=== PATIENT | male | born 1940 | race Caucasian/White ===

== ENCOUNTER 2018-04-04 17:46 | Inpatient (IN) | payer MEDICARE ==
[~2018-04-04] VITALS: Ht 165.1 cm; Wt 94.2 kg
[~2018-04-04 17:46] MED LIST: ACET-1600 PO; ALLO300T PO; ASPI-515 PO; HYDR-3240 PO; LISI40TA PO; MULT-516 PO; NAPR220C2 PO; OMEP20TA62 PO; PANT40TA5 PO; TERA1CAP3 PO; VITAMIN B12 PO
[2018-04-04] MEDS ORDERED: SODIUM CHLORIDE FLUSH 10ML SYR IVF ONE (18:30)
[2018-04-04 18:43] LABS: BASOPHILS # (AUTO) 0.05 x10^3/uL (0-0.1); BASOPHILS % (AUTO) 1 % (0-1); EOSINOPHILS # (AUTO) 0.04 x10^3/uL (0-0.4); EOSINOPHILS % (AUTO) 0 % (1-7); LYMPHOCYTES # (AUTO) 0.23 x10^3/uL (1-3.4); LYMPHOCYTES % (AUTO) 3 % (22-44); MD NO; MEAN CORPUSCULAR HEMOGLOBIN 31.5 pg (27.5-34.5); MEAN CORPUSCULAR HGB CONC 32.4 g/dL (33.2-36.2); MEAN CORPUSCULAR VOLUME 97.1 fL (81-97); MEAN PLATELET VOLUME 7.4 fL (7.4-10.4); MONOCYTES # (AUTO) 0.19 x10^3/uL (0.2-0.8); MONOCYTES % (AUTO) 2 % (2-9); NEUTROPHILS % (AUTO) 94 % (42-75); PLATELET COUNT 456 x10^3/uL (130-400); RED BLOOD COUNT 3.59 x10^6/uL (4.38-5.82); RED CELL DISTRIBUTION WIDTH 16.8 % (9.4-14.8)
[2018-04-04 18:46] LABS: ALANINE AMINOTRANSFERASE 31 U/L (12-78); ALBUMIN 2.3 g/dL (3.4-5.0); ANION GAP 9 mmol/L (5-15); CALCIUM 8.9 mg/dL (8.5-10.1); CHLORIDE 107 mmol/L (98-107); CREATININE 1.94 mg/dL (0.7-1.3)
[2018-04-04 18:47] LABS: INTERNATIONAL NORMALIZED RATIO 1.29 (0.93-1.1); PROTHROMBIN TIME 13.2 Seconds (9.6-11.5)
[2018-04-04] MEDS ORDERED: POTA20TA89 PO (18:47)
[2018-04-04] MEDS ORDERED: FURO20TA3 PO (18:47)
[2018-04-04] MEDS ORDERED: CLOP75TA52 PO (18:47)
[2018-04-04 18:50] LABS: ALKALINE PHOSPHATASE 143 U/L (45-117); BILIRUBIN,TOTAL 1.4 mg/dL (0.2-1.0); TOTAL PROTEIN 7.3 g/dL (6.4-8.2)
[2018-04-04 18:57] LABS: MICROSCOPIC INDICATED
[2018-04-04 19:09] LABS: CULTURE INDICATED? NO
[2018-04-04] MEDS ORDERED: SODIUM CHLORIDE 0.9% 1,000 ML IV SCH (19:16)
[2018-04-04] MEDS ORDERED: HYDROcodone/APAP 5/325 TABLET PO PRN (19:30)
[2018-04-04] MEDS ORDERED: GUAIFENESIN/DM 200-20MG, 10ML UDC PO PRN (19:30)
[2018-04-04] MEDS ORDERED: POLYETHYLENE GLYCOL 17 GM PACKET PO PRN (19:30)
[2018-04-04] MEDS ORDERED: hydrALAzine 20 MG/ML, 1ML IVPush PRN (19:30)
[2018-04-04] MEDS ORDERED: ONDANSETRON 2MG/ML, 2ML IVPush PRN (19:30)
[2018-04-04 20:30] VITALS: BP 125/72
[2018-04-04] MEDS: PLEASE ENTER HEIGHT AND WEIGHT MC SCH (20:30)
[2018-04-04] MEDS: HEPARIN 5,000 UNITS/ML, 1ML SQ SCH (21:00)
[2018-04-05 01:04] VITALS: BP 129/78
[2018-04-05] MEDS: PLEASE ENTER HEIGHT AND WEIGHT MC SCH ×3 (04:30→17:00)
[2018-04-05 06:10] LABS: BASOPHILS # (AUTO) 0.04 x10^3/uL (0-0.1); BASOPHILS % (AUTO) 1 % (0-1); EOSINOPHILS # (AUTO) 0.04 x10^3/uL (0-0.4); EOSINOPHILS % (AUTO) 1 % (1-7); LYMPHOCYTES # (AUTO) 0.25 x10^3/uL (1-3.4); LYMPHOCYTES % (AUTO) 4 % (22-44); MD NO; MEAN CORPUSCULAR HEMOGLOBIN 31.6 pg (27.5-34.5); MEAN CORPUSCULAR HGB CONC 32.9 g/dL (33.2-36.2); MEAN PLATELET VOLUME 7.8 fL (7.4-10.4); MONOCYTES % (AUTO) 6 % (2-9); NEUTROPHILS # (AUTO) 6.03 x10^3/uL (1.8-6.8); NEUTROPHILS % (AUTO) 89 % (42-75); PLATELET COUNT 415 x10^3/uL (130-400); RED BLOOD COUNT 3.44 x10^6/uL (4.38-5.82); RED CELL DISTRIBUTION WIDTH 17.3 % (9.4-14.8)
[2018-04-05 06:20] LABS: ALANINE AMINOTRANSFERASE 27 U/L (12-78); ALBUMIN 2.1 g/dL (3.4-5.0); ANION GAP 10 mmol/L (5-15); CALCIUM 8.7 mg/dL (8.5-10.1); CHLORIDE 109 mmol/L (98-107); CREATININE 1.85 mg/dL (0.7-1.3)
[2018-04-05] MEDS ORDERED: ALBUMIN HUMAN 25% 100 ML IV ONE (06:30)
[2018-04-05] MEDS ORDERED: FUROSEMIDE 40 MG/4 ML IV ONE (06:30)
[2018-04-05 06:31] LABS: ALKALINE PHOSPHATASE 141 U/L (45-117); BILIRUBIN,TOTAL 1.6 mg/dL (0.2-1.0); THYROID STIMULATING HORMONE 0.606 mIU/L (0.358-3.740); TOTAL PROTEIN 6.8 g/dL (6.4-8.2)
[2018-04-05 07:59] VITALS: BP 121/65
[2018-04-05] MEDS ORDERED: LIDOCAINE 2%, 20ML ONE (08:01)
[2018-04-05] MEDS: PANTOPROZOLE 40MG TABLET PO SCH (10:57)
[2018-04-05] MEDS: MULTIVITAMIN 1 TABLET PO SCH (10:57)
[2018-04-05] MEDS: CYANOCOBALAMIN 1,000 MCG TABLET PO SCH (10:58)
[2018-04-05] MEDS: ACETAMINOPHEN 325 MG TABLET PO PRN ×2 (11:08→19:39)
[2018-04-05] MEDS: HEPARIN 5,000 UNITS/ML, 1ML SQ SCH ×2 (12:09→21:02)
[2018-04-05 13:15] VITALS: BP 101/62
[2018-04-05 19:59] VITALS: BP 108/66
[2018-04-06 01:40] VITALS: BP 101/62
[2018-04-06 04:53] LABS: ALANINE AMINOTRANSFERASE 26 U/L (12-78); ALBUMIN 2.3 g/dL (3.4-5.0); ANION GAP 8 mmol/L (5-15); CALCIUM 8.9 mg/dL (8.5-10.1); CHLORIDE 110 mmol/L (98-107)
[2018-04-06 04:57] LABS: ALKALINE PHOSPHATASE 145 U/L (45-117); BILIRUBIN,TOTAL 1.4 mg/dL (0.2-1.0); TOTAL PROTEIN 6.7 g/dL (6.4-8.2)
[2018-04-06 06:45] VITALS: BP 117/66
[2018-04-06] MEDS: IRON SUCROSE COMPLEX 100MG/5ML IV SCH (08:42)
[2018-04-06] MEDS: PANTOPROZOLE 40MG TABLET PO SCH (08:43)
[2018-04-06] MEDS: CYANOCOBALAMIN 1,000 MCG TABLET PO SCH (08:43)
[2018-04-06] MEDS: HEPARIN 5,000 UNITS/ML, 1ML SQ SCH ×2 (08:43→21:41)
[2018-04-06] MEDS: MULTIVITAMIN 1 TABLET PO SCH (08:43)
[2018-04-06] MEDS: ACETAMINOPHEN 325 MG TABLET PO PRN ×2 (10:15→18:24)
[2018-04-06 14:00] VITALS: BP 149/74
[2018-04-06 18:19] VITALS: BP 139/77
[2018-04-06 19:17] VITALS: BP 144/82
[2018-04-06 19:24] LABS: MEAN CORPUSCULAR HEMOGLOBIN 31.3 pg (27.5-34.5); MEAN CORPUSCULAR HGB CONC 32.4 g/dL (33.2-36.2); MEAN CORPUSCULAR VOLUME 96.8 fL (81-97); MEAN PLATELET VOLUME 7.4 fL (7.4-10.4); PLATELET COUNT 548 x10^3/uL (130-400); RED CELL DISTRIBUTION WIDTH 17.5 % (9.4-14.8)
[2018-04-06 19:25] LABS: TROPONIN I < 0.015 ng/mL (0.000-0.045)
[2018-04-06 19:41] LABS: BASOPHILS # (AUTO) 0.06 x10^3/uL (0-0.1); BASOPHILS % (AUTO) 1 % (0-1); EOSINOPHILS # (AUTO) 0.04 x10^3/uL (0-0.4); EOSINOPHILS % (AUTO) 1 % (1-7); LYMPHOCYTES # (AUTO) 0.28 x10^3/uL (1-3.4); LYMPHOCYTES % (AUTO) 3 % (22-44); MD MORPH REVIEW ONLY; MONOCYTES % (AUTO) 5 % (2-9); NEUTROPHILS # (AUTO) 7.54 x10^3/uL (1.8-6.8); NEUTROPHILS % (AUTO) 91 % (42-75)
[2018-04-06 19:42] LABS: ANISOCYTOSIS 1+; POLYCHROMASIA 1+
[2018-04-06 19:43] LABS: <PLATELET ESTIMATE> INCREASED; <PLT MORPHOLOGY> NORMAL PLT MORPH; TOXIC GRAN 1+
[2018-04-07 01:10] VITALS: BP 135/78
[2018-04-07 05:02] LABS: TROPONIN I < 0.015 ng/mL (0.000-0.045)
[2018-04-07 06:45] VITALS: BP 110/63
[2018-04-07] MEDS: PANTOPROZOLE 40MG TABLET PO SCH (08:04)
[2018-04-07] MEDS: IRON SUCROSE COMPLEX 100MG/5ML IV SCH (08:04)
[2018-04-07] MEDS: CYANOCOBALAMIN 1,000 MCG TABLET PO SCH (08:04)
[2018-04-07] MEDS: HEPARIN 5,000 UNITS/ML, 1ML SQ SCH (08:04)
[2018-04-07] MEDS: MULTIVITAMIN 1 TABLET PO SCH (08:04)
[2018-04-07] MEDS ORDERED: SODIUM CHLORIDE 0.9% 1,000 ML IV SCH (09:00)
[2018-04-07] MEDS ORDERED: ALBUMIN HUMAN 25% 50 ML IV SCH (09:00)
[2018-04-07 12:45] VITALS: BP 123/75
[2018-04-07] MEDS ORDERED: RIVA1TAB PO (16:50)
== END 2018-04-07 17:30 | disposition home or self-care (01) | DRG 180 ==
LOC: ED 18:36 → EDIP 18:37 → ED 18:39 → SUATTDRO 18:53 → 3NW 20:20
PROVIDERS: ADMIT Hospitalist; ATTEND Hospitalist
PROC: 0W993ZZ Drainage of Right Pleural Cavity, Percutaneous Approach (ICD-10-PCS; principal; 2018-04-05)
DX: C78.00 Secondary malignant neoplasm of unspecified lung (principal); E43 Unspecified severe protein-calorie malnutrition; J90 Pleural effusion, not elsewhere classified; N17.9 Acute kidney failure, unspecified; E86.9 Volume depletion, unspecified; D50.9 Iron deficiency anemia, unspecified; D63.8 Anemia in other chronic diseases classified elsewhere; I10 Essential (primary) hypertension; K21.9 Gastro-esophageal reflux disease without esophagitis; N40.0 Benign prostatic hyperplasia without lower urinary tract symptoms; G89.29 Other chronic pain; M10.9 Gout, unspecified; M19.90 Unspecified osteoarthritis, unspecified site; M54.5 Low back pain; T46.5X5A Adverse effect of other antihypertensive drugs, initial encounter; Y92.89 Other specified places as the place of occurrence of the external cause; Z85.048 Personal history of other malignant neoplasm of rectum, rectosigmoid junction, and anus; Z86.711 Personal history of pulmonary embolism; Z86.718 Personal history of other venous thrombosis and embolism; Z87.891 Personal history of nicotine dependence; Z87.442 Personal history of urinary calculi; Z92.21 Personal history of antineoplastic chemotherapy; Z92.3 Personal history of irradiation; Z68.34 Body mass index [BMI] 34.0-34.9, adult
CPT/HCPCS: 32555; 36415; 71045; 71250; 74176; 78582; 80053; 81001; 82042; 82378; 82728; 82945; 83540; 83550; 83615; 83735; 83880; 84100; 84157; 84443; 84484; 85025; 85379; 85610; 87040; 87070; 87205; 88112; 88305; 93005; 93306; 99285; J1644; J1756; J1940; J3490; P9047; A9540; A9558; C9898; J7030

== ENCOUNTER 2018-04-12 18:12 | Inpatient (IN) | payer MEDICARE ==
[~2018-04-12] VITALS: Ht 167.6 cm; Wt 100.2 kg
[~2018-04-12 18:12] MED LIST changes: +CLOP75TA52 PO; +FURO20TA3 PO; +POTA20TA89 PO; +RIVA1TAB PO
[2018-04-12] MEDS ORDERED: SODIUM CHLORIDE FLUSH 10ML SYR IVF ONE (18:30)
[2018-04-12 18:45] LABS: MEAN CORPUSCULAR HEMOGLOBIN 31.2 pg (27.5-34.5); MEAN CORPUSCULAR HGB CONC 32.7 g/dL (33.2-36.2); MEAN CORPUSCULAR VOLUME 95.4 fL (81-97); MEAN PLATELET VOLUME 7.3 fL (7.4-10.4); PLATELET COUNT 407 x10^3/uL (130-400); RED BLOOD COUNT 3.52 x10^6/uL (4.38-5.82); RED CELL DISTRIBUTION WIDTH 17.4 % (9.4-14.8)
[2018-04-12 18:53] LABS: INTERNATIONAL NORMALIZED RATIO 1.62 (0.93-1.1); PROTHROMBIN TIME 16.5 Seconds (9.6-11.5)
[2018-04-12 18:56] LABS: ALBUMIN 2.3 g/dL (3.4-5.0); ANION GAP 9 mmol/L (5-15); CALCIUM 8.9 mg/dL (8.5-10.1); CHLORIDE 110 mmol/L (98-107)
[2018-04-12 18:59] LABS: ALANINE AMINOTRANSFERASE 24 U/L (12-78); ALKALINE PHOSPHATASE 187 U/L (45-117); BILIRUBIN,TOTAL 1.4 mg/dL (0.2-1.0); CREATININE 1.85 mg/dL (0.7-1.3); TOTAL PROTEIN 7.4 g/dL (6.4-8.2)
[2018-04-12] MEDS ORDERED: VANCOMYCIN PER PHARMACY MC ONE (19:00)
[2018-04-12] MEDS ORDERED: PIPERACILLIN/TAZO/PMX 3.375GM 50 ML IVPB ONE (19:00)
[2018-04-12 19:01] LABS: TROPONIN I < 0.015 ng/mL (0.000-0.045)
[2018-04-12] MEDS ORDERED: TERA5CAP3 PO (19:05)
[2018-04-12 19:07] LABS: MD YES
[2018-04-12 19:09] LABS: ANISOCYTOSIS 1+; BAND#(MANUAL) 0.14 x10^3/uL; BANDS%(MANUAL) 1 % (0-7); LYMPH#(MANUAL) 0.28 x10^3/uL (1-3.4); LYMPHS% (MANUAL) 2 % (22-44); MONOS#(MANUAL) 0.28 x10^3/uL (0.3-2.7); MONOS% (MANUAL) 2 % (2-9); SEGS% (MANUAL) 95 % (42-75)
[2018-04-12 19:10] LABS: POLYCHROMASIA 1+
[2018-04-12 19:11] LABS: <PLATELET ESTIMATE> INCREASED; <PLT MORPHOLOGY> NORMAL PLT MORPH
[2018-04-12] MEDS ORDERED: VANCOMYCIN 2,000 MG in SODIUM CHLORIDE 0.9% 500 ML IV ONE (19:30)
[2018-04-12] MEDS ORDERED: PIPERACILLIN/TAZO/PMX 3.375GM 50 ML ONE (19:45)
[2018-04-12 21:00] VITALS: BP 138/80
[2018-04-12] MEDS ORDERED: PROMETHAZINE 25 MG/ML, 1ML IM PRN (21:00)
[2018-04-12] MEDS ORDERED: ONDANSETRON 2MG/ML, 2ML IVPush PRN (21:00)
[2018-04-12] MEDS ORDERED: ONDANSETRON ODT 4 MG PO PRN (21:00)
[2018-04-12] MEDS ORDERED: hydrALAzine 20 MG/ML, 1ML IVPush PRN (21:00)
[2018-04-12] MEDS ORDERED: OXYcodone IR 5MG TABLET PO PRN (21:00)
[2018-04-12] MEDS ORDERED: ACETAMINOPHEN 325 MG TABLET PO PRN (21:00)
[2018-04-12] MEDS ORDERED: POLYETHYLENE GLYCOL 17 GM PACKET PO PRN (21:00)
[2018-04-12] MEDS ORDERED: BISACODYL 10 MG SUPP PR PRN (21:00)
[2018-04-12] MEDS ORDERED: morphine SULFATE 10 MG/ML, 1ML IVPush PRN (21:00)
[2018-04-12] MEDS ORDERED: VANCOMYCIN PER PHARMACY MC PRN (21:00)
[2018-04-12 21:17] LABS: TOTAL PROTEIN 6.6 g/dL (6.4-8.2)
[2018-04-12 21:21] LABS: FREE T4 (FREE THYROXINE) 1.4 ng/dL (0.76-1.46); THYROID STIMULATING HORMONE 0.768 mIU/L (0.358-3.740)
[2018-04-12 21:24] LABS: HEMOGLOBIN A1C 5.5 % (4.2-6.3)
[2018-04-12] MEDS ORDERED: PHARMACOKINETIC MONITORING MC PRN (21:30)
[2018-04-13 02:00] VITALS: BP 133/75
[2018-04-13] MEDS: SODIUM CHLORIDE 0.9% 1,000 ML IV SCH ×2 (02:01→16:41)
[2018-04-13] MEDS: PIPERACILLIN/TAZO 2.25 GM in SODIUM CHLORIDE 0.9% 50 ML IV SCH ×4 (02:02→19:58)
[2018-04-13 04:33] LABS: MEAN CORPUSCULAR HEMOGLOBIN 30.6 pg (27.5-34.5); MEAN CORPUSCULAR VOLUME 95.6 fL (81-97); MEAN PLATELET VOLUME 7.5 fL (7.4-10.4); PLATELET COUNT 413 x10^3/uL (130-400); RED BLOOD COUNT 3.68 x10^6/uL (4.38-5.82); RED CELL DISTRIBUTION WIDTH 17.2 % (9.4-14.8)
[2018-04-13 04:38] LABS: ALBUMIN 2.2 g/dL (3.4-5.0); ANION GAP 9 mmol/L (5-15); CALCIUM 8.7 mg/dL (8.5-10.1); CHLORIDE 112 mmol/L (98-107)
[2018-04-13 04:41] LABS: ALANINE AMINOTRANSFERASE 22 U/L (12-78); ALKALINE PHOSPHATASE 176 U/L (45-117); BILIRUBIN,TOTAL 1.1 mg/dL (0.2-1.0); CHOL/HDL RATIO 2.2; CHOLESTEROL, TOTAL 65 mg/dL (140-239); CREATININE 1.81 mg/dL (0.7-1.3); HDL CHOL % 45 % (26-37); HDL CHOLESTEROL (DIRECT) 29 mg/dL (40-60); LDL CHOLESTEROL,CALCULATED 27 mg/dL (54-169); LDL/HDL RATIO 0.9 (0.5-3.0); TOTAL PROTEIN 7.3 g/dL (6.4-8.2); TRIGLYCERIDES 47 mg/dL (50-200); VLDL CHOLESTEROL 9 mg/dL (0-25)
[2018-04-13 05:41] LABS: MD YES
[2018-04-13 05:42] LABS: BAND#(MANUAL) 0.58 x10^3/uL; BANDS%(MANUAL) 4 % (0-7); LYMPH#(MANUAL) 0.58 x10^3/uL (1-3.4); LYMPHS% (MANUAL) 4 % (22-44); METAMYELOCYTES# (MANUAL) 0.15 x10^3/uL (0-0); METAMYELOCYTES% (MANUAL) 1 % (0-1); SEG#(MANUAL) 13.29 x10^3/uL (1.8-6.8); SEGS% (MANUAL) 91 % (42-75)
[2018-04-13 05:43] LABS: <PLATELET ESTIMATE> ADEQUATE; <PLT MORPHOLOGY> NORMAL PLT MORPH; ANISOCYTOSIS 1+; POLYCHROMASIA 1+; TOXIC GRAN 1+
[2018-04-13 06:36] VITALS: BP 140/80
[2018-04-13] MEDS: ALLOPURINOL 300 MG TABLET PO SCH (07:57)
[2018-04-13] MEDS: PANTOPROZOLE 40MG TABLET PO SCH (07:57)
[2018-04-13] MEDS: ASPIRIN 81 MG TABLET EC PO SCH (07:57)
[2018-04-13] MEDS: CYANOCOBALAMIN 1,000 MCG TABLET PO SCH (07:57)
[2018-04-13] MEDS: MULTIVITAMIN 1 TABLET PO SCH (07:57)
[2018-04-13] MEDS: TERAZOSIN 5MG CAPSULE PO SCH (07:57)
[2018-04-13] MEDS: SENNA/DOCUSATE TABLET PO SCH (07:58)
[2018-04-13] MEDS ORDERED: LIDOCAINE-MPF 1%, 2ML ONE (09:10)
[2018-04-13 09:55] VITALS: BP 126/71
[2018-04-13 12:00] VITALS: BP 126/71
[2018-04-13] MEDS ORDERED: SODIUM POLYSTYRENE SULFONATE ORAL SUSP PO ONE (14:30)
[2018-04-13] MEDS: LACTOBACILLUS CHEW TABLET PO SCH ×2 (16:41→19:59)
[2018-04-13] MEDS ORDERED: VANCOMYCIN 1,600 MG in SODIUM CHLORIDE 0.9% 250 ML IV SCH (17:00)
[2018-04-13 17:40] LABS: MICROSCOPIC INDICATED
[2018-04-13 18:37] LABS: CULTURE INDICATED? NO
[2018-04-13 19:42] VITALS: BP 108/61
[2018-04-14 02:00] VITALS: BP 115/65
[2018-04-14] MEDS: PIPERACILLIN/TAZO 2.25 GM in SODIUM CHLORIDE 0.9% 50 ML IV SCH ×4 (02:00→20:19)
[2018-04-14 04:45] LABS: BASOPHILS # (AUTO) 0.03 x10^3/uL (0-0.1); BASOPHILS % (AUTO) 0 % (0-1); EOSINOPHILS % (AUTO) 0 % (1-7); LYMPHOCYTES # (AUTO) 0.33 x10^3/uL (1-3.4); LYMPHOCYTES % (AUTO) 2 % (22-44); MD NO; MEAN CORPUSCULAR HEMOGLOBIN 30.9 pg (27.5-34.5); MEAN CORPUSCULAR HGB CONC 32.2 g/dL (33.2-36.2); MEAN CORPUSCULAR VOLUME 95.8 fL (81-97); MEAN PLATELET VOLUME 7.4 fL (7.4-10.4); MONOCYTES # (AUTO) 0.43 x10^3/uL (0.2-0.8); MONOCYTES % (AUTO) 3 % (2-9); NEUTROPHILS # (AUTO) 13.15 x10^3/uL (1.8-6.8); NEUTROPHILS % (AUTO) 94 % (42-75); PLATELET COUNT 413 x10^3/uL (130-400); RED BLOOD COUNT 3.42 x10^6/uL (4.38-5.82); RED CELL DISTRIBUTION WIDTH 17.6 % (9.4-14.8)
[2018-04-14 04:49] LABS: ANION GAP 7 mmol/L (5-15); CALCIUM 8.4 mg/dL (8.5-10.1); CHLORIDE 114 mmol/L (98-107)
[2018-04-14 04:51] LABS: CREATININE 2.12 mg/dL (0.7-1.3)
[2018-04-14 06:42] VITALS: BP 128/66
[2018-04-14] MEDS: MULTIVITAMIN 1 TABLET PO SCH (08:22)
[2018-04-14] MEDS: PANTOPROZOLE 40MG TABLET PO SCH (08:22)
[2018-04-14] MEDS: TERAZOSIN 5MG CAPSULE PO SCH (08:22)
[2018-04-14] MEDS: LACTOBACILLUS CHEW TABLET PO SCH ×3 (08:22→20:19)
[2018-04-14] MEDS: ALLOPURINOL 300 MG TABLET PO SCH (08:22)
[2018-04-14] MEDS: CYANOCOBALAMIN 1,000 MCG TABLET PO SCH (08:22)
[2018-04-14] MEDS: ASPIRIN 81 MG TABLET EC PO SCH (08:22)
[2018-04-14] MEDS: SENNA/DOCUSATE TABLET PO SCH (08:23)
[2018-04-14] MEDS ORDERED: VANCOMYCIN 1,600 MG in SODIUM CHLORIDE 0.9% 250 ML IV SCH (09:00)
[2018-04-14 13:03] VITALS: BP 115/63
[2018-04-14 20:00] VITALS: BP 121/68
[2018-04-15] MEDS: PIPERACILLIN/TAZO/PMX 2.25GM 50 ML IVPB SCH ×3 (01:55→15:04)
[2018-04-15 02:00] VITALS: BP 134/68
[2018-04-15 06:33] VITALS: BP 137/72
[2018-04-15] MEDS: MULTIVITAMIN 1 TABLET PO SCH (08:00)
[2018-04-15] MEDS: CYANOCOBALAMIN 1,000 MCG TABLET PO SCH (08:00)
[2018-04-15] MEDS: LACTOBACILLUS CHEW TABLET PO SCH ×2 (08:00→16:39)
[2018-04-15] MEDS: ALLOPURINOL 300 MG TABLET PO SCH (08:00)
[2018-04-15] MEDS: PANTOPROZOLE 40MG TABLET PO SCH (08:00)
[2018-04-15] MEDS: ASPIRIN 81 MG TABLET EC PO SCH (08:01)
[2018-04-15] MEDS: SENNA/DOCUSATE TABLET PO SCH (08:01)
[2018-04-15] MEDS: TERAZOSIN 5MG CAPSULE PO SCH (08:14)
[2018-04-15 08:40] LABS: MEAN CORPUSCULAR HEMOGLOBIN 30.2 pg (27.5-34.5); MEAN CORPUSCULAR HGB CONC 31.8 g/dL (33.2-36.2); MEAN PLATELET VOLUME 7.7 fL (7.4-10.4); PLATELET COUNT 335 x10^3/uL (130-400); RED BLOOD COUNT 3.28 x10^6/uL (4.38-5.82); RED CELL DISTRIBUTION WIDTH 17.5 % (9.4-14.8)
[2018-04-15 08:56] LABS: BASOPHILS # (AUTO) 0.06 x10^3/uL (0-0.1); BASOPHILS % (AUTO) 1 % (0-1); EOSINOPHILS # (AUTO) 0.02 x10^3/uL (0-0.4); EOSINOPHILS % (AUTO) 0 % (1-7); LYMPHOCYTES # (AUTO) 0.28 x10^3/uL (1-3.4); LYMPHOCYTES % (AUTO) 3 % (22-44); MD SCAN; MONOCYTES % (AUTO) 4 % (2-9); NEUTROPHILS # (AUTO) 8.64 x10^3/uL (1.8-6.8); NEUTROPHILS % (AUTO) 92 % (42-75)
[2018-04-15 09:09] LABS: ANION GAP 11 mmol/L (5-15); CALCIUM 8.7 mg/dL (8.5-10.1); CHLORIDE 114 mmol/L (98-107); CREATININE 1.69 mg/dL (0.7-1.3)
[2018-04-15] MEDS ORDERED: VANCOMYCIN 1,600 MG in SODIUM CHLORIDE 0.9% 250 ML IV SCH (10:00)
[2018-04-15 12:30] VITALS: BP 136/78
[2018-04-15] MEDS ORDERED: Vancomycin Per Pharmacy MC (14:52)
[2018-04-15] MEDS ORDERED: LISI-167 PO (14:52)
[2018-04-15] MEDS ORDERED: POLY17PO5 PO (14:52)
[2018-04-15] MEDS ORDERED: ACID1TAB7 PO (14:52)
[2018-04-15] MEDS ORDERED: PIPE2.253 IV (14:52)
[2018-04-15] MEDS ORDERED: VANC1VIA3 IV (14:52)
== END 2018-04-15 19:20 | DRG 871 ==
LOC: ED 18:56 → EDIP 20:41 → 3NW 20:50
PROVIDERS: ADMIT Internal Medicine; ATTEND Internal Medicine
PROC: 0W993ZZ Drainage of Right Pleural Cavity, Percutaneous Approach (ICD-10-PCS; principal; 2018-04-13)
DX: A41.9 Sepsis, unspecified organism (principal); J15.9 Unspecified bacterial pneumonia; E43 Unspecified severe protein-calorie malnutrition; C34.90 Malignant neoplasm of unspecified part of unspecified bronchus or lung; I13.0 Hypertensive heart and chronic kidney disease with heart failure and stage 1 through stage 4 chronic kidney disease, or unspecified chronic kidney disease; I50.1 Left ventricular failure, unspecified; C78.00 Secondary malignant neoplasm of unspecified lung; C19 Malignant neoplasm of rectosigmoid junction; K92.2 Gastrointestinal hemorrhage, unspecified; D64.9 Anemia, unspecified; Z68.35 Body mass index [BMI] 35.0-35.9, adult; E87.5 Hyperkalemia; K21.9 Gastro-esophageal reflux disease without esophagitis; M19.90 Unspecified osteoarthritis, unspecified site; M1A.9XX0 Chronic gout, unspecified, without tophus (tophi); N18.9 Chronic kidney disease, unspecified; N40.0 Benign prostatic hyperplasia without lower urinary tract symptoms; Z86.711 Personal history of pulmonary embolism; Z86.718 Personal history of other venous thrombosis and embolism; Z87.442 Personal history of urinary calculi; Z87.891 Personal history of nicotine dependence; Z79.01 Long term (current) use of anticoagulants
CPT/HCPCS: 32555; 36415; 71045; 80048; 80053; 80061; 80202; 81001; 82945; 83036; 83605; 83615; 83735; 83880; 84100; 84155; 84157; 84439; 84443; 84484; 85025; 85610; 85730; 87040; 87070; 87186; 87205; 88112; 88305; 89051; 93005; 96365; J2543; J3370; J3490; J7030; J7040; J7050

== ENCOUNTER 2018-08-22 11:34 | Inpatient (IN) | payer MEDICARE ==
[2018-08-22] VITALS (7 sets, daily range): BP systolic 121–129; BP diastolic 80–88
[~2018-08-22] VITALS: Ht 167.6 cm; Wt 83.8 kg
[~2018-08-22 11:34] MED LIST changes: +ACID1TAB7 PO; +LISI-167 PO; +PIPE2.253 IV; +POLY17PO5 PO; +TERA5CAP3 PO; +VANC1VIA3 IV; +Vancomycin Per Pharmacy MC
[2018-08-22] MEDS ORDERED: METOPROLOL 1 MG/ML, 5ML ONE (11:59)
[2018-08-22] MEDS ORDERED: PLEASE ENTER HEIGHT AND WEIGHT MC SCH (12:00)
[2018-08-22] MEDS ORDERED: METOPROLOL 1 MG/ML, 5ML IVPush PRN (12:00)
[2018-08-22] MEDS ORDERED: SODIUM CHLORIDE FLUSH 10ML SYR IVF ONE (12:00)
[2018-08-22] MEDS ORDERED: CEFTRIAXONE 1,000 MG in SODIUM CHLORIDE 0.9% 50 ML IVPB ONE (12:00)
[2018-08-22] MEDS ORDERED: CEFTRIAXONE PMX 1GM/50ML 50 ML ONE (12:11)
[2018-08-22 12:34] LABS: BASOPHILS # (AUTO) 0.04 x10^3/uL (0-0.1); BASOPHILS % (AUTO) 0 % (0-1); EOSINOPHILS # (AUTO) 0.02 x10^3/uL (0-0.4); EOSINOPHILS % (AUTO) 0 % (1-7); LYMPHOCYTES # (AUTO) 0.33 x10^3/uL (1-3.4); LYMPHOCYTES % (AUTO) 3 % (22-44); MD NO; MEAN CORPUSCULAR HEMOGLOBIN 27.5 pg (27.5-34.5); MEAN CORPUSCULAR HGB CONC 32.3 g/dL (33.2-36.2); MEAN PLATELET VOLUME 7.4 fL (7.4-10.4); MONOCYTES # (AUTO) 0.39 x10^3/uL (0.2-0.8); MONOCYTES % (AUTO) 4 % (2-9); NEUTROPHILS # (AUTO) 10.11 x10^3/uL (1.8-6.8); NEUTROPHILS % (AUTO) 93 % (42-75); PLATELET COUNT 350 x10^3/uL (130-400); RED BLOOD COUNT 4.55 x10^6/uL (4.38-5.82); RED CELL DISTRIBUTION WIDTH 20.5 % (9.4-14.8)
[2018-08-22] MEDS ORDERED: HYDR-3240 PO (12:43)
[2018-08-22] MEDS ORDERED: ACET325T14 PO (12:43)
[2018-08-22 12:50] LABS: CHLORIDE 104 mmol/L (98-107)
[2018-08-22] MEDS ORDERED: SODIUM CHLORIDE 0.9%, 500ML IVBOLUS ONE (13:00)
[2018-08-22 13:03] LABS: ALANINE AMINOTRANSFERASE 16 U/L (12-78); ALBUMIN 1.9 g/dL (3.4-5.0); ANION GAP 16 mmol/L (5-15); BILIRUBIN,TOTAL 1.2 mg/dL (0.2-1.0)
[2018-08-22 13:07] LABS: ALKALINE PHOSPHATASE 161 U/L (45-117)
[2018-08-22] MEDS ORDERED: DOCUSATE 100 MG CAPSULE PO PRN (14:00)
[2018-08-22] MEDS ORDERED: hydrALAzine 20 MG/ML, 1ML IVPush PRN (14:00)
[2018-08-22] MEDS ORDERED: ACETAMINOPHEN 325 MG TABLET PO PRN (14:00)
[2018-08-22] MEDS ORDERED: POLYETHYLENE GLYCOL 17 GM PACKET PO PRN (14:00)
[2018-08-22] MEDS ORDERED: VANCOMYCIN PER PHARMACY MC PRN (14:00)
[2018-08-22] MEDS ORDERED: KETOROLAC 30 MG/1 ML IV PRN (14:00)
[2018-08-22] MEDS ORDERED: BISACODYL 10 MG SUPP PR PRN (14:00)
[2018-08-22] MEDS ORDERED: ONDANSETRON 2MG/ML, 2ML IVPush PRN (14:00)
[2018-08-22] MEDS ORDERED: ENOXAPARIN 80 MG/0.8 ML SQ SCH (14:30)
[2018-08-22] MEDS ORDERED: DILTIAZEM 125 MG in SODIUM CHLORIDE 0.9% 100 ML IV PRN (14:30)
[2018-08-22 15:13] LABS: THYROID STIMULATING HORMONE 1.89 mIU/L (0.358-3.740)
[2018-08-22] MEDS ORDERED: VANCOMYCIN 1,600 MG in SODIUM CHLORIDE 0.9% 250 ML IV SCH (15:30)
[2018-08-22] MEDS ORDERED: PHARMACOKINETIC MONITORING MC PRN (15:30)
[2018-08-22] MEDS ORDERED: MAGNESIUM SULFATE PMX 2GM/50ML 50 ML IV ONE (16:00)
[2018-08-22] MEDS ORDERED: FUROSEMIDE 20 MG/2 ML IV SCH (17:00)
[2018-08-22 17:17] LABS: TROPONIN I 0.237 ng/mL (0.000-0.045)
[2018-08-22] MEDS: AMPICILLIN/SULBACTAM 3 GM in SODIUM CHLORIDE 0.9% 100 ML IV SCH (18:34)
[2018-08-22] MEDS ORDERED: SODIUM CHLORIDE FLUSH 10ML SYR IVF SCH (21:00)
[2018-08-22] MEDS ORDERED: HYDROcodone/APAP 5/325 TABLET PO SCH (21:00)
[2018-08-22] MEDS ORDERED: OMNIPAQUE 350 MG/ML, 100ML BOTTLE ONE (21:15)
[2018-08-22 22:44] LABS: TROPONIN I 0.238 ng/mL (0.000-0.045)
[2018-08-23 00:04] VITALS: BP 109/72
[2018-08-23] MEDS ORDERED: OMNIPAQUE 350 MG/ML, 100ML BOTTLE ONE (00:10)
[2018-08-23] MEDS: AMPICILLIN/SULBACTAM 3 GM in SODIUM CHLORIDE 0.9% 100 ML IV SCH (01:40)
[2018-08-23 01:52] VITALS: BP 123/81
[2018-08-23] MEDS ORDERED: POTASSIUM CHLORIDE 20 MEQ TAB.ER.PRT PO SCH (08:00)
== END 2018-08-23 03:30 | disposition short-term general hospital (02) | DRG 64 ==
LOC: ED 13:14 → EDIP 13:15 → 5SO 14:27
PROVIDERS: ADMIT Hospitalist; ATTEND Family Medicine
DX: I63.9 Cerebral infarction, unspecified (principal); J96.01 Acute respiratory failure with hypoxia; J18.9 Pneumonia, unspecified organism; E43 Unspecified severe protein-calorie malnutrition; I50.33 Acute on chronic diastolic (congestive) heart failure; C78.00 Secondary malignant neoplasm of unspecified lung; C20 Malignant neoplasm of rectum; R17 Unspecified jaundice; E87.2 Acidosis; I48.91 Unspecified atrial fibrillation; I66.01 Occlusion and stenosis of right middle cerebral artery; Z86.718 Personal history of other venous thrombosis and embolism; Z86.711 Personal history of pulmonary embolism; Z87.442 Personal history of urinary calculi; Z87.891 Personal history of nicotine dependence; Z83.3 Family history of diabetes mellitus; N40.0 Benign prostatic hyperplasia without lower urinary tract symptoms; K21.9 Gastro-esophageal reflux disease without esophagitis; I11.0 Hypertensive heart disease with heart failure; M10.9 Gout, unspecified; M19.90 Unspecified osteoarthritis, unspecified site; R19.7 Diarrhea, unspecified; Z90.49 Acquired absence of other specified parts of digestive tract; Z68.29 Body mass index [BMI] 29.0-29.9, adult
CPT/HCPCS: 36415; 36600; 70450; 70496; 70498; 71045; 71275; 80053; 82803; 83605; 83735; 84443; 84484; 85025; 87040; 93005; 93970; 96365; 96372; 96375; 99285; G0378; J0295; J0696; J1650; J3370; Q9967; J1940; J3475; J7040; J7050